=== PATIENT | male | born 1980 | race Caucasian/White ===

== ENCOUNTER 2024-08-22 20:57 | Emergency (ER) | payer SELFPAY ==
[~2024-08-22] VITALS: Ht 182.9 cm; Wt 113.2 kg
[2024-08-22 21:01] VITALS: BP 172/129; PULSE 87; RESP 16; O2SAT 98
[2024-08-22] MEDS: cloNIDine 0.1 mg tablet PO ONE (21:21)
[2024-08-22 21:26] VITALS: TEMP 97.7
== END 2024-08-22 21:29 ==
LOC: ER 20:58
DX: Z02.89 Encounter for other administrative examinations (principal)
CPT/HCPCS: 99283

== ENCOUNTER 2024-11-06 15:16 | Emergency (ER) | payer SELFPAY ==
[~2024-11-06] VITALS: Ht 182.9 cm; Wt 111.4 kg
[2024-11-06 15:42] VITALS: TEMP 98.2
[2024-11-06 16:40] LABS: BASOPHILS % (AUTO) 0.5 % (0-1); EOSINOPHILS % (AUTO) 0.5 % (0-6); HEMATOCRIT 32.5 % (42.0-52.0); HEMOGLOBIN 10.6 g/dl (14.0-17.9); LYMPHOCYTES # (AUTO) 1.1 X10'3 (1.1-4.8); LYMPHOCYTES % (AUTO) 13.6 % (21-51); MEAN CORPUSCULAR HEMOGLOBIN 24.5 PG (27.0-31.0); MEAN CORPUSCULAR HGB CONC 32.6 g/dL (33.0-36.5); MEAN CORPUSCULAR VOLUME 75.1 FL (78-98); MEAN PLATELET VOLUME 9.6 FL (7.4-10.4); MONOCYTES # (AUTO) 0.5 X10'3 (0-0.9); NEUTROPHILS # (AUTO) 6.7 X10'3 (1.8-7.7); NEUTROPHILS % (AUTO) 79.4 % (42-75); PLATELET COUNT 189 X10'3 (140-440); RED BLOOD COUNT 4.33 X10'6 (4.70-6.10); RED CELL DISTRIBUTION WIDTH 19.6 % (11.5-14.5); WHITE BLOOD COUNT 8.4 X10'3 (4.5-11.0)
[2024-11-06 16:50] LABS: ALANINE AMINOTRANSFERASE 39 U/L (12-78); ALBUMIN 3.8 G/DL (3.4-5.0); ALBUMIN/GLOBULIN RATIO 1.1 (1.1-1.5); ALKALINE PHOSPHATASE 54 IU/L (46-116); ANION GAP 9 (8-16); ASPARTATE AMINO TRANSFERASE 25 U/L (10-37); BILIRUBIN,TOTAL 0.7 MG/DL (0.1-1.0); BLOOD UREA NITROGEN 13 MG/DL (7-18); BUN/CREATININE RATIO 14.4 (10.0-20.0); CHLORIDE 101 MMOL/L (99-107); GLUCOSE 107 MG/DL (70-104); SODIUM 135 MMOL/L (135-145); TOTAL CARBON DIOXIDE 25.4 MMOL/L (24-32); TOTAL PROTEIN 7.3 G/DL (6.4-8.2); eCRCL 116 ML/MIN; eGFR > 90 ML/MIN
[2024-11-06 17:00] LABS: ANISOCYTOSIS 2+; HYPOCHROMASIA 1+; MICROCYTOSIS 1+; PLATELET ESTIMATE NORMAL
[2024-11-06 17:01] LABS: ELLIPTOCYTES FEW
[2024-11-06] MEDS ORDERED: POTA-188 PO (17:25)
[2024-11-06] MEDS: potassium Cl 20 mEq SR tablet PO STA (17:44)
[2024-11-06 17:58] VITALS: BP 148/91; PULSE 75; RESP 19; O2SAT 98
== END 2024-11-06 18:00 | disposition home or self-care (01) ==
LOC: ER 15:16
DX: R00.2 Palpitations (principal); E87.6 Hypokalemia; F12.90 Cannabis use, unspecified, uncomplicated
CPT/HCPCS: 36415; 71045; 80053; 84484; 85008; 85025; 93005; 99285